=== PATIENT | male | born 1940 | race Caucasian/White ===

== ENCOUNTER 2016-11-21 05:08 | Day surgery (SDC) | payer MEDICARE, OTHER ==
[2016-11-18 09:24] LABS: HEMATOCRIT 43.2 % (42.0-54.0); HEMOGLOBIN 14.9 g/dL (13.5-17.5); MCHC 34.5 g/dL (31.0-37.0); MEAN PLATELET VOLUME 9.2 fL (7.4-10.4); RBC 4.8 10x6/uL (4.20-6.10); WBC 4.2 10x3/uL (4.8-10.8)
[2016-11-18 09:37] LABS: ANION GAP 7.7 mmol/L (8-16); CALCIUM 9.2 mg/dL (8.5-10.1); CREATININE - SERUM 1.4 mg/dL (0.6-1.3); POTASSIUM - SERUM 3.7 mmol/L (3.5-5.1)
[~2016-11-21] VITALS: Ht 195.6 cm; Wt 99.8 kg
[~2016-11-21 05:08] MED LIST: HYZAAR 100-25 T1 TAB PO; L-LYSINE500 M1 PO; LOPID600 MG PO; PLAVIX75 MG PO; XALATAN 0.0052.5 ML RIGHT EYE; ZETIA10 MG PO
[2016-11-21 08:31] VITALS: BP 117/70; Ht 195.6 cm; Wt 99.8 kg
[2016-11-21] MEDS ORDERED: HYDROCODON-ACE1 EAC7 PO (10:30)
[2016-11-21] MEDS ORDERED: FUROSEMIDE20 MG PO (10:31)
[2016-11-21] MEDS ORDERED: FLOMAX0.4 MG PO (10:31)
--- NOTE | 2016-11-21 13:19 | OP ---
PATIENT NAME: GALILEO HOLT MEDICAL RECORD: [id number] :42 LOCATION:[facility] ADMISSION DATE: SURGEON: GALILEO ABEL MD DATE OF OPERATION: 11/21/2016 SURGEON: Galileo Abel MD. PREOPERATIVE DIAGNOSIS: Left inguinal hernia. POSTOPERATIVE DIAGNOSIS: Left inguinal hernia. PROCEDURE PERFORMED: Left inguinal herniorrhaphy. ANESTHESIA: General. COMPLICATIONS: None. SPECIMENS: None. Case was clean. ESTIMATED BLOOD LOSS: 15 cc. OPERATIVE COURSE: After consent was obtained, the patient was taken to the operating room and placed in the supine position on the operating table. Next, general anesthesia was given via endotracheal intubation after timeout was taken to confirm the correct patient and procedure. Left inguinal region was prepped and draped in typical sterile fashion. External landmarks were identified. A 10 cc of local anesthetic were injected 2 fingerbreadths medial, 1 fingerbreadth inferior to the ASIS for an inguinal block. A second 10 cc of local anesthetic was injected prior to incision, a transverse incision made with the 10-blade scalpel. Dissection was then continued to the level of the external oblique fascia using electrocautery. A 10 cc of local anesthetic was injected below the external oblique fascia. The fascia was incised with 15-blade scalpel. Using a push cut technique with Metzenbaum scissors, the external oblique fascia was opened towards the ASIS laterally and pubic tubercle medially. The external ring was opened. The external oblique fascia was grasped with hemostats. It was bluntly dissected and undermined. A self-retaining retractor was placed. The cord structures were dissected off the pubic tubercle. A [place] dressing was placed. At this time, it was noted that the patient had a painful hernia. The patient had obliteration of the floor of the direct space of the inguinal floor as well as a large indirect component in the internal ring. The floor was reconstructed with a Bassini-type repair. The conjoined tendon was quite lax. The conjoined tendon was sewn to the inguinal ligament using 0 Vicryl suture, reapproximating the floor and reducing the direct hernia within the direct space. Next, the hernia sac was meticulously dissected off the cord and the cord structures. The vas deferens was identified. The high ligation was performed on the hernia sac. It was tied off with an 0 Vicryl suture. The hernia sac was excised. At this time, a standard Bruno repair was done with a Bard inguinal hernia mesh. The mesh was secured to the pubic tubercle medially with interrupted 2-0 Prolene suture. A keyhole incision was made in the mesh to recreate the internal inguinal ring, which was loosely reapproximated. It was secured with several interrupted 2-0 Prolene sutures on the inguinal ligament and the conjoined tendon. At this time, the [place] dressing was removed. The external oblique fascia was closed with a 2-0 Vicryl OPERATIVE REPORT [id number] GALILEO HOLT suture. At this time, Kenneth was applied to the tissue. Christine fascia was reapproximated with 3-0 Vicryl suture and the skin was reapproximated with a 4-0 Stratafix, Mastisol and Steri-Strips. At the end of the case, all needle and instruments counts were correct. No complications occurred. The patient was extubated and transferred to the PACU in stable condition. TRANSINT:[id number] Voice Confirmation ID: [id number] DOCUMENT ID: [id number] GALILEO ABEL MD at 1319 CC: [id number] DICTATION DATE: 11/21/16 1029 [facility] OPERATOR: 11/21/16 1240 [id number] [place] [address]
--- NOTE | 2016-11-21 15:30 | NUR ---
RECEIVED CARE. HAS BEEN UNABLE TO VOID. ENCOURAGED PO FLUIDS. DRINKING DIET TEJINDER COLA AT THIS TIME. AT BEDSIDE. SMILING. DENIES PAIN. RLQ ABDOMINAL INCISION WITH STERI STRIPS C/D/I, NO DRAINAGE NOTED.
--- NOTE | 2016-11-21 16:39 | NUR ---
1500 [facility] TO Kaylin ATKINSON R.N.. David FAM R.N.
--- NOTE | 2016-11-21 17:00 | NUR ---
UP TO VOID, AND VOIDED WITHOUT DIFFICULTY. IS CONCERNED HE DID NOT EMPTY HIS BLADDER. BLADDER SCAN DONE AND SHOWS 0 URINE IN BLADDER. IV REMOVED INTACT. DISCHARGE INSTRUCTIONS AND RX GIVEN. INSTRUCTED ON USE OF FLOMAX. ASSURED AND PATIENT HE SHOULD NOT HAVE ANY TROUBLE VOIDING AT HOME WITH RX FOR FLOMAX AND FUROSEMIDE, VOICED UNDERSTANDING. DISCHARGED HOME VIA WC.
== END 2016-11-21 17:00 | disposition home or self-care (01) ==
LOC: D.OPS 05:08 → D.PAN 08:45 → D.OPS 17:00
PROVIDERS: Anesthesiology
DX: K40.90 Unilateral inguinal hernia, without obstruction or gangrene, not specified as recurrent (principal); Z87.891 Personal history of nicotine dependence; I10 Essential (primary) hypertension; Z01.812 Encounter for preprocedural laboratory examination